=== PATIENT | male | born 2000 | race African-American/Black ===

== ENCOUNTER 2020-05-13 17:02 | Emergency (ER) | payer OTHER ==
[~2020-05-13] VITALS: Ht 175.3 cm; Wt 70.1 kg
[2020-05-13 17:03] VITALS: BP 123/70
[2020-05-13] MEDS ORDERED: AUGMENTIN 875 MG TAB PO ONE (18:00)
[2020-05-13] MEDS ORDERED: AUGM875T28 PO (18:03)
== END 2020-05-13 18:12 | disposition home or self-care (01) ==
LOC: M ED 17:02
DX: J02.0 Streptococcal pharyngitis (principal); Z79.51 Long term (current) use of inhaled steroids

== ENCOUNTER 2020-06-11 01:38 | Inpatient (IN) | payer OTHER ==
[~2020-06-11] VITALS: Ht 175.3 cm; Wt 69.8 kg
[~2020-06-11 01:38] MED LIST: AUGM875T28 PO
[2020-06-11] MEDS ORDERED: ACETAMINOPHEN 500 MG TAB As Ordered ONE (01:44)
[2020-06-11] MEDS ORDERED: cefTRIAXone SOD 1GM VIAL (J0696 PER 250MG) As Ordered ONE (03:06)
[2020-06-11] MEDS ORDERED: AZITHROMYCIN INJ 500MG VIAL (J0456 PER 500MG) As Ordered ONE (03:06)
[2020-06-11] MEDS ORDERED: IBUPROFEN 400 MG TAB As Ordered ONE (05:05)
[2020-06-11] MEDS ORDERED: VANCOMYCIN 1000MG/20ML VIAL As Ordered ONE (05:05)
[2020-06-11] MEDS ORDERED: VANCOMYCIN 1000MG/20ML VIAL ONE (15:58)
[2020-06-11 20:35] VITALS: BP 108/61
[2020-06-11] MEDS ORDERED: RAMELTEON 8 MG TAB (ROZEREM) PO PRN (21:00)
[2020-06-11] MEDS ORDERED: IBUPROFEN 400 MG TAB PO PRN (21:00)
[2020-06-11] MEDS ORDERED: ACETAMINOPHEN 500 MG TAB PO PRN (21:00)
[2020-06-11 21:12] VITALS: BP 123/87
[2020-06-11] MEDS ORDERED: ONDANSETRON 4 MG TAB PO PRN (21:15)
[2020-06-11] MEDS ORDERED: BISACODYL 5 MG TAB PO PRN (21:15)
[2020-06-11 22:25] VITALS: BP 121/87
[2020-06-11] MEDS: BENZONATATE 100 MG CAP PO PRN (23:22)
[2020-06-12] MEDS: VANCOMYCIN HCL 1,000 MG, VIAL MATE ADAPTER 1 EACH in D5W 250 ML IV SCH ×3 (01:29→18:09)
[2020-06-12 02:00] VITALS: BP 117/72
[2020-06-12] MEDS ORDERED: IBUP1TAB7 PO (02:42)
[2020-06-12] MEDS: LevoFLOXacin IV 750 MG in IV 1 EA IV SCH (03:23)
[2020-06-12] MEDS: NS 1,000 ML IV SCH ×4 (03:23→16:35)
[2020-06-12 06:00] VITALS: BP 128/83
[2020-06-12 06:40] LABS: BASO # 0.1 10^3/uL (0.0-0.2); BASO % 0.5 % (0.0-1.0); EOS # 2.7 10^3/uL (0.0-0.5); EOS % 19.4 % (0.0-3.0); HEMATOCRIT 42.7 % (42.0-52.0); HEMOGLOBIN 14.3 g/dl (13.5-17.5); LYMPH # 2.4 10^3/uL (1.5-5.0); LYMPH % 17.8 % (24.0-44.0); MEAN CORPUSCULAR HGB CONC 33.5 g/dl (32.0-36.5); MEAN CORPUSCULAR VOLUME 89.7 fl (80.0-96.0); MONO # 0.9 10^3/uL (0.0-0.8); MONO % 6.4 % (0.0-5.0); NEUTROPHILS # 7.6 10^3/uL (1.5-8.5); NEUTROPHILS % 55.5 % (36.0-66.0); PLATELET COUNT, AUTOMATED 372 10^3/uL (150-450); RED BLOOD COUNT 4.76 10^6/uL (4.30-6.10); WHITE BLOOD COUNT 13.7 10^3/uL (4.0-10.0)
[2020-06-12 07:12] LABS: ALBUMIN 2.7 GM/DL (3.2-5.2); ALT/SGPT 51 U/L (12-78); BILIRUBIN,TOTAL 0.5 MG/DL (0.2-1.0); BLOOD UREA NITROGEN 7 MG/DL (7-18); C REACTIVE PROTEIN QUANTITATIV 5.15 MG/DL (0.00-0.30); CALCIUM LEVEL 8.9 MG/DL (8.5-10.1); CARBON DIOXIDE LEVEL 29 MEQ/L (21-32); CHLORIDE LEVEL 108 MEQ/L (98-107); CREATININE FOR GFR 0.86 MG/DL (0.70-1.30); GLUCOSE, FASTING 95 MG/DL (70-100); MAGNESIUM LEVEL 1.6 MG/DL (1.8-2.4); POTASSIUM SERUM 4.6 MEQ/L (3.5-5.1); SODIUM LEVEL 140 MEQ/L (136-145); TOTAL PROTEIN 6.7 GM/DL (6.4-8.2)
[2020-06-12 08:55] LABS: ERYTHROCYTE SEDIMENTATION RATE 34 mm/hr (0-15)
[2020-06-12 12:00] VITALS: BP 116/72
--- NOTE | 2020-06-12 13:37 | IPNPDOC ---
Date Seen The patient was seen on 06/12/20. Progress Note SUBJECTIVE: Doing well. Denies subjective fevers, chills, however febrile overnight Tmax 102. Comfortable in bed. Chest pain and cough have improved. OBJECTIVE PHYSICAL EXAMINATION: VITAL SIGNS: Please see below. GENERAL: NAD, comfortable HEENT: PERRLA CARDIOVASCULAR: RRR, normal S1, S2, no friction rub. RESPIRATORY: mild rales, slightly diminished breath sounds on R. ABDOMINAL: soft, non tender EXTREMITIES: no deformity NEUROLOGICAL: AAO x 3, no focal deficits PSYCHOLOGICAL: calm, cooperative LABORATORY DATA, IMAGING STUDIES, MICROBIOLOGY: Please see below. DVT prophylaxis ordered?: Y ASSESSMENT AND PLAN: This is a 20 yo M with no significant PMHx, admitted for R sided CAP, sepsis. PROBLEMS: 1. Sepsis 2/2 pna: IV levaquin, vanc. Switch to PO abx once afebrile. To complete 7 days therapy. F/u legionella, strep Ag. Negative RVP. Saturating well on RA. LA 0.7. PO hydration, DC IVF. 2. Cough: tessalon 3. R sided chest pain: pleuritic, worse on coughing, tessalon. Trops neg, EKG shows no changes. 4. Urticaria: developed after shower. no resp symptoms. response to benadryl. Benadryl 25 mg PO q8h prn. DISPOSITION: DC home when medicall stable VS, I&O, 24H, Fishbone Vital Signs/I&O Vital Signs Date Time Temp Pulse Resp B/P (MAP) Pulse Ox O2 Delivery O2 Flow Rate FiO2 06/12/20 06:00 98.5 87 22 128/83 (98) 95 Room Air I&O- Last 24 Hours up to 6 AM 06/12/20 06:00 Intake Total 2880 ml Output Total 575 ml Balance 2305 ml Laboratory Data 24H LABS Laboratory Tests 2 06/11/20 21:40: Troponin I < 0.02 06/12/20 06:06: Anion Gap 3L, Calcium Level 8.9, Magnesium Level 1.6L, Total Bilirubin 0.5, As partate Amino Transf (AST/SGOT) 43H, Alanine Aminotransferase (ALT/SGPT) 51, Alkaline Phosphatase 165H, C-Reactive Protein, Quantitative 5.15H, Total Protein 6.7, Albumin 2.7L, Albumin/Globulin Ratio 0.7 06/12/20 06:22: Immature Granulocyte % (Auto) 0.4, Neutrophils (%) (Auto) 55.5, Lymphocytes (%) (Auto) 17.8L, Monocytes (%) (Auto) 6.4H, Eosinophils (%) (Auto) 19.4H, Basophils (%) (Auto) 0.5, Neutrophils # (Auto) 7.6, Lymphocytes # (Auto) 2.4, Monocytes # (Auto) 0.9H, Eosinophils # (Auto) 2.7H, Basophils # (Auto) 0.1, Nucleated Red Blood Cells % (auto) 0.0, Erythrocyte Sedimentation Rate 34H CBC/BMP Laboratory Tests 06/12/20 06:06 06/12/20 06:22 GERI SMITH MD Jun 12, 2020 13:37
[2020-06-12 14:43] VITALS: O2SAT 95
[2020-06-12] MEDS ORDERED: diphenhydrAMINE 25MG CAP PO ONE (16:30)
--- NOTE | 2020-06-12 19:54 | PHACANCOPD ---
PHARMACY VANCOMYCIN DOSING Pt Demographics Demographics Patient Age:20 , Weight: , Gender: male Adjusted Body Weight Date: 06/12/20, Adjusted Body Weight: Kg Vancomycin Vancomycin indication: RESPIRATORY INFECTION Vancomycin Target Ranges: 15-20 mcg/ml Vancomycin Load Y/N: No Load Dose Date Time Vancomycin Load Dose: Date: Time: Vancomycin Dose Date: 06/12/20. Current Vancomycin Dose: [1250MG IV Q8H] Intermittent Dosing?: No Labs Labs Item Value Date Time White Blood Count 13.7 10^3/uL H 06/12/20 0622 Erythrocyte Sedimentation Rate 34 mm/hr H 06/12/20 06 Micro MRSA PCR PENDING Creatinine Clearance Date:06/12/20. Creatinine Clearance: [Est CrCl >100ml/min]. Pending Labs Vancomycin trough level pending 06/13/20 @1700 Assessment and Plan Maintaining Current Dose?: No Reason for dose change: Trough too low Pharmacist Note Pharmacist Note Date: 06/12/20. Pharmacist note: Vancomycin trough level today resulted at 7.4mcg/ml (drawn 1.5hrs late). Loading with 1500mg tonight, followed by an increase to 1250mg q8h maintenance regimen. MRSA nasal PCR is pending. A follow- up vancomycin trough level has been scheduled to be drawn 06/13/20 @1700 (prior to 4th dose of new regimen). Pharmacy will follow-up and continue to monitor. [facility] Jun 12, 2020 19:54
[2020-06-12] MEDS ORDERED: VANCOMYCIN HCL 500 MG in D5W MINI-BAG PLUS 100 ML IV ONE (20:00)
[2020-06-12] MEDS: BENZONATATE 100 MG CAP PO PRN (20:24)
[2020-06-12] MEDS ORDERED: ENOXAPARIN 40MG/0.4ML SYRINGE (J1650 PER 10MG) SC SCH (21:00)
[2020-06-12] MEDS ORDERED: diphenhydrAMINE 25MG CAP PO PRN (21:45)
[2020-06-12 22:00] VITALS: BP 104/57
[2020-06-12] MEDS ORDERED: IPRATROPIUM 0.5MG/ALBUTEROL 2.5MG INH SOL UD 3ML (DUONEB) NEB PRN (23:15)
[2020-06-13 01:19] VITALS: O2SAT 95
[2020-06-13 02:00] VITALS: BP 110/56
[2020-06-13] MEDS: VANCOMYCIN HCL 750 MG, VIAL MATE ADAPTER 1 EACH in D5W 250 ML IV SCH ×2 (02:12→09:45)
[2020-06-13] MEDS ORDERED: VANCOMYCIN HCL 500 MG in D5W MINI-BAG PLUS 100 ML IV SCH (03:00)
[2020-06-13] MEDS: LevoFLOXacin IV 750 MG in IV 1 EA IV SCH (05:02)
[2020-06-13 06:00] VITALS: BP 118/68
--- NOTE | 2020-06-13 07:08 | IPNPDOC ---
Date Seen The patient was seen on 06/13/20. Progress Note SUBJECTIVE: Doing well. Afebrile Comfortable in bed. Chest pain and cough have resolved. OBJECTIVE PHYSICAL EXAMINATION: VITAL SIGNS: Please see below. GENERAL: NAD, comfortable HEENT: PERRLA CARDIOVASCULAR: RRR, normal S1, S2, no friction rub. RESPIRATORY: CTAB ABDOMINAL: soft, non tender EXTREMITIES: no deformity NEUROLOGICAL: AAO x 3, no focal deficits PSYCHOLOGICAL: calm, cooperative LABORATORY DATA, IMAGING STUDIES, MICROBIOLOGY: Please see below. DVT prophylaxis ordered?: Y ASSESSMENT AND PLAN: This is a 20 yo M with no significant PMHx, admitted for R sided CAP, sepsis. PROBLEMS: 1. Sepsis 2/2 pna: DC IV abx. Afebrile. Cough resolved. To complete 7 days abx, will finish 4 days of PO levaquin at home. Strep screen neg. 2. Cough: tessalon 3. R sided chest pain: pleuritic, worse on coughing, tessalon. Trops neg, EKG shows no changes. 4. Urticaria: developed after shower. no resp symptoms. Improved. Response to benadryl. Benadryl 25 mg PO q8h prn on DC DISPOSITION: DC home with PO antibiotics. [facility] Vital Signs Date Time Temp Pulse Resp B/P (MAP) Pulse Ox O2 Delivery O2 Flow Rate FiO2 06/13/20 02:00 99.5 87 20 110/56 (74) 96 Room Air I&O- Last 24 Hours up to 6 AM 06/13/20 06:00 Intake Total 4515 ml Output Total 3350 ml Balance 1165 ml Laboratory Data 24H LABS Laboratory Tests 2 06/12/20 18:00: Vancomycin Level Trough 7.4L 06/13/20 06:14: CBC/BMP GERI SMITH MD Jun 13, 2020 07:08
[2020-06-13 07:24] LABS: ALBUMIN 2.7 GM/DL (3.2-5.2); ALT/SGPT 51 U/L (12-78); BILIRUBIN,TOTAL 0.5 MG/DL (0.2-1.0); BLOOD UREA NITROGEN 6 MG/DL (7-18); CARBON DIOXIDE LEVEL 30 MEQ/L (21-32); CHLORIDE LEVEL 103 MEQ/L (98-107); CREATININE FOR GFR 0.93 MG/DL (0.70-1.30); GLUCOSE, FASTING 99 MG/DL (70-100); POTASSIUM SERUM 4.1 MEQ/L (3.5-5.1); SODIUM LEVEL 138 MEQ/L (136-145); TOTAL PROTEIN 6.8 GM/DL (6.4-8.2)
[2020-06-13 10:00] VITALS: BP 118/67
[2020-06-13 12:12] VITALS: O2SAT 98
[2020-06-13 14:00] VITALS: BP 133/70
[2020-06-13] MEDS ORDERED: LEVA750T7 PO (15:37)
[2020-06-13] MEDS ORDERED: BENZ-18 PO (15:37)
[2020-06-13] MEDS ORDERED: DIPH25CA32 PO (15:37)
--- NOTE | 2020-06-13 15:51 | DS.PDOC ---
Discharge Summary General Date of Admission Jun 11, 2020 at 03:30 Date of Discharge 06/13/2020 Attending Physician: GERI SMITH MD Discharge Summary PROCEDURES PERFORMED DURING STAY: [None]. ADMITTING DIAGNOSES: 1. Community Acquired Pneumonia DISCHARGE DIAGNOSES: 1. CAP COMPLICATIONS/CHIEF COMPLAINT: Fever, Cough. HISTORY OF PRESENT ILLNESS: 20 yo M presenting for worsening cough, SOB and subjective fevers and chills. CXR showing R lobe consolidation. HOSPITAL COURSE: Started on IV vanc and levaquin. Completed 3 days of IV abx therapy, resulting in improvement in cough, pleuritic chest pain. Remained afebrile after 2 days of admission. On day 2, developed a pruritic urticarial rash after showering which responded to benadryl. IV vancomycin was discontinued. Would recommend allergy testing as outpatient. DISCHARGE MEDICATIONS: Please see below. ALLERGIES: Please see below. PHYSICAL EXAMINATION ON DISCHARGE: VITAL SIGNS: Please see below. GENERAL: NAD, comfortable HEENT: PERRLA NECK: supple, normal ROM CARDIOVASCULAR EXAMINATION: RRR, normal S1, S2 RESPIRATORY EXAMINATION: CTAB, no rales, no crackles, no wheezubg ABDOMINAL EXAMINATION: soft, non tender EXTREMITIES: no deformity, normal ROM SKIN: fine, pruritic rash on arms, back. Morbiliform NEUROLOGICAL EXAMINATION: no focal neuro deficit PSYCHIATRIC EXAMINATION: calm, cooperative LABORATORY DATA: Please see below. Imaging: R sided consolidation on CXR. ACTIVITY: [As tolerated]. DIET: as tolerated DISCHARGE PLAN: return home with PCP follow up DISCHARGE INSTRUCTIONS: 1. Complete 4 additional days of oral antibiotic therapy, for a total of 7 days. Levaquin 750 mg PO daily x 4 days. 2. Monitor for recurrence of fever, chills, cough, worsening shortness of breath ITEMS TO FOLLOWUP ON ON OUTPATIENT: 1. Skin allergy testing DISCHARGE CONDITION: [Stable]. TIME SPENT ON DISCHARGE: Less than [30] minutes. Vital Signs/I&Os Vital Signs Date Time Temp Pulse Resp B/P (MAP) Pulse Ox O2 Delivery O2 Flow Rate FiO2 06/13/20 14:00 98.6 79 17 133/70 (91) 96 Room Air I&O- Last 24 Hours up to 6 AM 06/13/20 06:00 Intake Total 4815 ml Output Total 3350 ml Balance 1465 ml Laboratory Data Labs 24H Laboratory Tests 2 06/12/20 18:00: Vancomycin Level Trough 7.4L 06/13/20 06:14: Anion Gap 5L, Calcium Level 9.0, Total Bilirubin 0.5, Aspartate Amino Transf (AST/SGOT) 37, Alanine Aminotransferase (ALT/SGPT) 51, Alkaline Phosphatase 159H, Total Protein 6.8, Albumin 2.7L, Albumin/Globulin Ratio 0.7 CBC/BMP Laboratory Tests 06/13/20 06:14 Microbiology Microbiology 06/11/20 Respiratory Virus Panel (PCR) ([facility]) - Final, Complete Discharge Medications Scheduled Levofloxacin (Levaquin) 750 Mg Tablet, 1 TAB PO DAILY Scheduled PRN Benzonatate (Benzonatate) 100 Mg Capsule, 100 MG PO TIDP PRN for COUGH Diphenhydramine HCl (Diphenhydramine HCl) 25 Mg Capsule, 25 MG PO Q8HP PRN for ITCHING Ibuprofen (Ibuprofen) 800 Mg Tablet, 800 MG PO TID PRN for HEADACHE OR PAIN, (Reported) Allergies Coded Allergies: No Known Allergies (Unverified , 05/13/20) GERI SMITH MD Jun 13, 2020 15:51
[2020-06-15 18:51] LABS: ALBUMIN 2.7 GM/DL (3.2-5.2); ALT/SGPT 53 U/L (12-78); BILIRUBIN,TOTAL 0.5 MG/DL (0.2-1.0); BLOOD UREA NITROGEN 10 MG/DL (7-18); CARBON DIOXIDE LEVEL 28 MEQ/L (21-32); CHLORIDE LEVEL 108 MEQ/L (98-107); CREATININE FOR GFR 0.82 MG/DL (0.70-1.30); GLUCOSE, FASTING 82 MG/DL (70-100); MAGNESIUM LEVEL 1.9 MG/DL (1.8-2.4); PHOSPHORUS LEVEL 3.7 MG/DL (2.5-4.9); POTASSIUM SERUM 4.5 MEQ/L (3.5-5.1); SODIUM LEVEL 140 MEQ/L (136-145); TOTAL PROTEIN 6.8 GM/DL (6.4-8.2); TROPONIN I < 0.02 NG/ML (< 0.10)
[2020-06-15 20:43] LABS: BLOOD UREA NITROGEN 9 MG/DL (7-18); C REACTIVE PROTEIN QUANTITATIV 8.15 MG/DL (0.00-0.30); CALCIUM LEVEL 9.2 MG/DL (8.5-10.1); CARBON DIOXIDE LEVEL 29 MEQ/L (21-32); CHLORIDE LEVEL 102 MEQ/L (98-107); CREATININE FOR GFR 0.98 MG/DL (0.70-1.30); GLUCOSE, FASTING 92 MG/DL (70-100); LDH LACTATE DEHYDROGENASE 264 U/L (87-241); POTASSIUM SERUM 3.9 MEQ/L (3.5-5.1); SODIUM LEVEL 135 MEQ/L (136-145)
[2020-06-15 20:43] LABS: BLOOD UREA NITROGEN 7 MG/DL (7-18); CALCIUM LEVEL 8.6 MG/DL (8.5-10.1); CARBON DIOXIDE LEVEL 29 MEQ/L (21-32); CHLORIDE LEVEL 105 MEQ/L (98-107); CREATININE FOR GFR 0.87 MG/DL (0.70-1.30); GLUCOSE, FASTING 106 MG/DL (70-100); MAGNESIUM LEVEL 2.2 MG/DL (1.8-2.4); POTASSIUM SERUM 3.9 MEQ/L (3.5-5.1); SODIUM LEVEL 137 MEQ/L (136-145)
--- NOTE | 2020-07-16 07:58 | REP ---
PORTABLE CHEST X-RAY: SINGLE-VIEW HISTORY: Right-sided pneumonia. COMPARISON: 06/11/2020. FINDINGS: There is a large dense infiltrate occupying most of the right upper lobe similar to the prior exam from two days earlier. The infiltrate abuts the minor fissure. There is no evidence of pleural effusion. No new infiltrate is seen. IMPRESSION: Large essentially lobar infiltrate in the right upper lobe persists. MTDD
--- NOTE | 2020-07-16 09:27 | ECGEPIP ---
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
--- NOTE | 2020-07-17 10:54 | ECGEPIP ---
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
[2020-07-22 08:11] LABS: HEMATOCRIT 42.4 % (42.0-52.0); HEMOGLOBIN 14.3 g/dl (13.5-17.5); MEAN CORPUSCULAR HEMOGLOBIN 30.4 pg (27.0-33.0); MEAN CORPUSCULAR HGB CONC 33.7 g/dl (32.0-36.5); PLATELET COUNT, AUTOMATED 367 10^3/uL (150-450); RED BLOOD COUNT 4.71 10^6/uL (4.30-6.10); WHITE BLOOD COUNT 18.8 10^3/uL (4.0-10.0)
[2020-07-22 08:11] LABS: BASO # 0.1 10^3/uL (0.0-0.2); BASO % 0.5 % (0.0-1.0); EOS # 1.7 10^3/uL (0.0-0.5); EOS % 8.5 % (0.0-3.0); HEMATOCRIT 47.4 % (42.0-52.0); HEMOGLOBIN 15.9 g/dl (13.5-17.5); LYMPH # 3.1 10^3/uL (1.5-5.0); LYMPH % 16.1 % (24.0-44.0); MEAN CORPUSCULAR HEMOGLOBIN 30.1 pg (27.0-33.0); MEAN CORPUSCULAR HGB CONC 33.5 g/dl (32.0-36.5); MEAN CORPUSCULAR VOLUME 89.8 fl (80.0-96.0); MONO # 1.3 10^3/uL (0.0-0.8); MONO % 6.8 % (0.0-5.0); NEUTROPHILS # 13.2 10^3/uL (1.5-8.5); NEUTROPHILS % 67.6 % (36.0-66.0); PLATELET COUNT, AUTOMATED 376 10^3/uL (150-450); RED BLOOD COUNT 5.28 10^6/uL (4.30-6.10); WHITE BLOOD COUNT 19.5 10^3/uL (4.0-10.0)
== END 2020-06-13 16:27 | disposition home or self-care (01) | DRG 871 ==
LOC: M ED 01:38 → M MSPAV 03:30
PROVIDERS: ADMIT Internal Medicine; ATTEND Family Medicine
DX: A41.9 Sepsis, unspecified organism (principal); J18.9 Pneumonia, unspecified organism; Z79.899 Other long term (current) drug therapy; L50.9 Urticaria, unspecified

== ENCOUNTER 2020-06-24 07:29 | Emergency (ER) | payer OTHER ==
[~2020-06-24] VITALS: Ht 175.3 cm; Wt 67.3 kg
[~2020-06-24 07:29] MED LIST changes: +BENZ-18 PO; +DIPH25CA32 PO; +IBUP1TAB7 PO; +LEVA750T7 PO
[2020-06-24] MEDS: ALBUTEROL 90 MCG/ACT 8GM HFA INHALER INH SCH ×3 (08:39→09:40)
[2020-06-24 08:51] LABS: BASO # 0.1 10^3/uL (0.0-0.2); BASO % 0.7 % (0.0-1.0); EOS % 12.1 % (0.0-3.0); HEMATOCRIT 45.5 % (42.0-52.0); HEMOGLOBIN 14.8 g/dl (13.5-17.5); LYMPH # 3.8 10^3/uL (1.5-5.0); LYMPH % 46.9 % (24.0-44.0); MEAN CORPUSCULAR HEMOGLOBIN 29.5 pg (27.0-33.0); MEAN CORPUSCULAR HGB CONC 32.5 g/dl (32.0-36.5); MEAN CORPUSCULAR VOLUME 90.8 fl (80.0-96.0); MONO # 0.5 10^3/uL (0.0-0.8); MONO % 5.6 % (0.0-5.0); NEUTROPHILS # 2.8 10^3/uL (1.5-8.5); NEUTROPHILS % 34.5 % (36.0-66.0); PLATELET COUNT, AUTOMATED 402 10^3/uL (150-450); RED BLOOD COUNT 5.01 10^6/uL (4.30-6.10); WHITE BLOOD COUNT 8.2 10^3/uL (4.0-10.0)
[2020-06-24 09:08] LABS: BLOOD UREA NITROGEN 13 MG/DL (7-18); CALCIUM LEVEL 9.1 MG/DL (8.5-10.1); CARBON DIOXIDE LEVEL 29 MEQ/L (21-32); CHLORIDE LEVEL 106 MEQ/L (98-107); CREATININE FOR GFR 1.03 MG/DL (0.70-1.30); GLUCOSE, FASTING 88 MG/DL (70-100); POTASSIUM SERUM 3.6 MEQ/L (3.5-5.1); SODIUM LEVEL 141 MEQ/L (136-145)
[2020-06-24 09:59] VITALS: O2SAT 99
[2020-06-24 10:35] VITALS: BP 121/68
[2020-06-24] MEDS ORDERED: PROAAER10 INH (10:36)
[2020-06-24] MEDS ORDERED: PRED20TA PO (10:36)
--- NOTE | 2020-07-19 14:32 | REP ---
CHEST X-RAY CLINICAL: Shortness of breath. Follow-up pneumonia. TECHNIQUE: PA and lateral. COMPARISON: 06/13/2020. FINDINGS: The right upper lobe pneumonia is again identified, but considerably improved and decreased from prior examination. No new process is appreciated. The mediastinum and cardiac silhouette are normal. Skeletal structures are intact. IMPRESSION: Right upper lobe infiltrate decreased from prior examination. MTDD
== END 2020-06-24 10:48 | disposition home or self-care (01) ==
LOC: M ED 07:29
DX: J45.909 Unspecified asthma, uncomplicated (principal); Z87.01 Personal history of pneumonia (recurrent)

== ENCOUNTER 2020-07-04 08:28 | Emergency (ER) | payer OTHER ==
[~2020-07-04] VITALS: Ht 175.3 cm; Wt 98.1 kg
[~2020-07-04 08:28] MED LIST changes: +PRED20TA PO; +PROAAER10 INH
--- NOTE | 2020-07-04 09:13 | REPVR ---
PROCEDURE INFORMATION: Exam: XR Chest, 2 Views Exam date and time: 07/04/20 (8:53am) Age: 20 years old Clinical indication: Chest pain and SOB TECHNIQUE: Imaging protocol: XR of the chest Views: 2 views COMPARISON: Chest films of 06/24/20 FINDINGS: Comparison is made with chest films done on 06/24/20. Partial clearing of hazy RUL opacity in the interim. No new infiltrates. No pleural effusions. Normal heart size. IMPRESSION: Partial clearing of hazy RUL infiltrate. No new infiltrates. No pleural effusions. Electronically signed by: Adelita Ramos On 07/04/2020 09:13:21 AM
[2020-07-04] MEDS ORDERED: KETO10TAB PO (09:26)
[2020-07-04] MEDS ORDERED: KETOROLAC 60MG 2ML VIAL IM ONE (09:30)
[2020-07-04 09:57] VITALS: BP 111/71
--- NOTE | 2020-07-05 13:40 | ED PDOC ---
Post-Departure Follow-Up cxr formal report faxed to [email or web address] for [facility] David Alexandra MD Jul 05, 2020 13:40
== END 2020-07-04 10:00 | disposition home or self-care (01) ==
LOC: M ED 08:28
DX: R07.89 Other chest pain (principal); R91.8 Other nonspecific abnormal finding of lung field
CPT/HCPCS: 71046; 96372; 99283; J1885

== ENCOUNTER 2020-07-25 08:23 | Inpatient (IN) | payer OTHER ==
[~2020-07-25] VITALS: Ht 175.3 cm; Wt 71.2 kg
[~2020-07-25 08:23] MED LIST changes: +KETO10TAB PO
[2020-07-25] MEDS ORDERED: methylPREDNISolone 125MG 2ML VIAL IV ONE (09:15)
[2020-07-25] MEDS ORDERED: ISOVUE-370 76% 100ML VIAL As Ordered ONE (09:28)
[2020-07-25 09:35] LABS: BASO % 0.7 % (0.0-1.0); EOS # 0.2 10^3/uL (0.0-0.5); EOS % 2.9 % (0.0-3.0); HEMATOCRIT 43.1 % (42.0-52.0); HEMOGLOBIN 14.3 g/dl (13.5-17.5); LYMPH # 2.5 10^3/uL (1.5-5.0); LYMPH % 45.8 % (24.0-44.0); MEAN CORPUSCULAR HEMOGLOBIN 29.5 pg (27.0-33.0); MEAN CORPUSCULAR HGB CONC 33.2 g/dl (32.0-36.5); MONO # 0.3 10^3/uL (0.0-0.8); MONO % 4.5 % (0.0-5.0); NEUTROPHILS # 2.5 10^3/uL (1.5-8.5); NEUTROPHILS % 45.9 % (36.0-66.0); PLATELET COUNT, AUTOMATED 334 10^3/uL (150-450); RED BLOOD COUNT 4.84 10^6/uL (4.30-6.10); WHITE BLOOD COUNT 5.5 10^3/uL (4.0-10.0)
--- NOTE | 2020-07-25 10:03 | REPVR ---
PROCEDURE INFORMATION: Exam: CT Angiography Chest With Contrast Exam date and time: 07/25/2020 9:04 AM Age: 20 years old Clinical indication: Shortness of breath; Chest pain; Additional info: Cp/sob TECHNIQUE: Imaging protocol: Computed tomographic angiography of the chest with intravenous contrast. 3D rendering (Not supervised by radiologist): MIP and/or 3D reconstructed images were created by the technologist. Radiation optimization: All CT scans at this facility use at least one of these dose optimization techniques: automated exposure control; mA and/or kV adjustment per patient size (includes targeted exams where dose is matched to clinical indication); or iterative reconstruction. Contrast material: ISOVUE 370; Contrast volume: 75 ml; Contrast route: INTRAVENOUS (IV); COMPARISON: CR Chest, 2 view PA, Lat 07/04/2020 8:53 AM FINDINGS: Pulmonary arteries: No pulmonary embolus is identified. Aorta: The thoracic aorta is nonaneurysmal. Lungs: There is a small area of mild ground-glass and tree-in-bud opacity in the right upper lobe. This is in the area of opacity on the prior radiographs. The lungs are otherwise clear. Pleural space: Unremarkable. No pneumothorax. No pleural effusion. Heart: Unremarkable. No cardiomegaly. No pericardial effusion. Lymph nodes: Unremarkable. No enlarged lymph nodes. Bones/joints: Unremarkable. No acute fracture. Soft tissues: Unremarkable. IMPRESSION: 1. No pulmonary embolus identified. 2. Small area of mild ground-glass and tree-in-bud opacity in the right upper lobe, could be infectious or inflammatory, corresponding to an area of opacity on radiographs of 07/04/20. Recommend follow-up to resolution. Electronically signed by: Zi Echols On 07/25/2020 10:02:55 AM
[2020-07-25 10:04] LABS: ALBUMIN 3.9 GM/DL (3.2-5.2); ALT/SGPT 32 U/L (12-78); BILIRUBIN,DIRECT 0.1 MG/DL (0.0-0.2); BILIRUBIN,TOTAL 0.5 MG/DL (0.2-1.0); CK-MB VALUE MASS 1.1 NG/ML (<3.6); CPK CREATINE PHOSPHOKINASE 354 U/L (39-308); MB/CK RELATIVE INDEX 0.31 (< OR =4); TOTAL PROTEIN 7.5 GM/DL (6.4-8.2); TROPONIN I < 0.02 NG/ML (< 0.10)
--- NOTE | 2020-07-25 13:38 | HPEPDOC ---
[facility] Medical History & Physical Date of Admission Jul 25, 2020 Date of Service: Jul 25, 2020 Attending Physician: MATTIE REYES MD History and Physical CHIEF COMPLAINT: sob and wheezing HISTORY OF PRESENT ILLNESS: Pt is a 20 year old male who has no significant PMHx to report, who presented to [facility] ER for cc of sob and wheezing. He was recently admitted for RUL PNA which he was treated inpatient with IV vanco/zosyn. He states that he has had this sob for the past month and really has not resolved. He states that he has always had a wheeze especially at night. He denies any nightime awakenings. He sometimes uses his brother's AMY albuterol inhaler. He is trying actively to find a pulmonogist to get a spirometry test to r/o Asthma. He denies traveling anywhere in the past month. Denies any sick contacts. Denies CP, SOB at the moment of the interview, wheezing, fever, nausea, vomiting or diarrhea. PAST MEDICAL HISTORY: None PAST SURGICAL HISTORY: None SOCIAL HISTORY: Denies Alcohol use or illicit drug use or tobacco use In the FAMILY HISTORY: Father: HTN Mother: Asthma Brother: Asthma ALLERGIES: NKDA REVIEW OF SYSTEMS: Constitutional: No Weight Change, No Fever, No Chills, No Night Sweats, No Fatigue, No Malaise ENT/Mouth: No Hearing Changes, No Ear Pain, No Nasal Congestion, No Sinus Pain, No Hoarseness, No sore throat, No Rhinorrhea, No Swallowing Difficulty Eyes: No Eye Pain, No Swelling, No Redness, No Foreign Body, No Discharge, No Vision Changes Cardiovascular: No Chest Pain, No SOB, No PND, No Dyspnea on Exertion, No Orthopnea, No Claudication, No Edema, No Palpitations Respiratory: No accessory muscle use , No Cough, No Wheezing, No Smoke Exposure, No Dyspnea Gastrointestinal: No Nausea, No Vomiting, No Diarrhea, No Constipation, No abdominal pain but does report bloating and decreased appetite Genitourinary: No Dysmenorrhea, No DUB, No Dyspareunia, No Dysuria Musculoskeletal: No Arthralgias, No Myalgias, No Joint Swelling, No Joint Stiffness, No Back Pain, No Neck Pain, No Injury History Skin: No Skin Lesions, No Pruritis Neuro: No Weakness, No Numbness, No Paresthesias, No Loss of Consciousness, No Syncope, No Dizziness, No Headache, No Coordination Changes, No Recent Falls Psych: No Anxiety/Panic, No Depression, No Insomnia, No Personality Changes, No Delusions Heme/Lymph: No Bruising, No Bleeding, No Transfusions History, No Lymphadenopathy Endocrine: No Polyuria, No Polydipsia, No Temperature Intolerance HOME MEDICATIONS: Please see below. PHYSICAL EXAMINATION: VITAL SIGNS: see below GENERAL: young male, alert and oriented, in no apparent distress, pleasant and conversant in full sentences. satting well on RA HEENT: PERRL, EOMI, Oral mucous membranes are moist without lesions. NECK: No JVD, Adenopathy, thyromegaly CHEST/LUNGS: Lungs are clear bilaterally without rhonchi, rales, or wheezes HEART: Regular rate and rhythm. 2/6 DON heard best in RUSB. Distal pulses are 2+. No carotid bruits appreciated. ABDOMEN: Soft, nontender, and nondistended. Bowel sounds are positive. No organomegaly is appreciated. No masses are appreciated. There are no peritoneal signs. EXTREMITIES: No peripheral edema. There is no focal long bone tenderness or deformity. SKIN: The patients skin is warm and dry, without rashes or lesions. PSYCHIATRIC: AAO x 3, normal mood/affect NEUROLOGIC: The patient has 5/5 strength to the upper and lower extremities bilaterally. Sensation is intact throughout. Deep tendon reflexes are 2+ in all four extremities. There are no deficits to the cranial nerves. LABORATORY DATA: See below. IMAGING: CTA: 1.) Small area of mild ground-glass and tree-in-bud opacity in the right upper lobe, could be infectious or inflammatory, corresponding to an area of opacity on radiographs of 07/04/20. No Pulm embolism MICROBIOLOGY: Please see below Assessment: This is a 20 year old male, who's relatively health without any reported past medical hx, admitted under obs due to sob and subjective wheezing. He states that he has an extensive family hx of asthma and says that he sometimes get sob after exercise. He is being worked up to r/o TB and is on droplet/airbone precautions #sob and wheezing likely 2/2 to Asthma - No sob or wheezing on exam - O2 PRN - Albuterol Nebs and prednisone 40mg PO qday - Will hold on abx- no leukocytosis - Pending IgG levels - LDH - B-D glucan pending - Aspger ab pending - Glactomannan pending - Pt will need to follow outpt with Pulmonolgist for a spirometry test # R/o Tuberculosis - CTA shows - small area of mild ground glass and tree in bud opacity in the RUL - Quantiferon Gold assay ordered- pending - Airborne/droplet precautions - CXR ordered for tomorrow (07/26) am DVT ppx: TEDs/SCDs Diet: Regular IVF: None Code status: Full Droplet/airborne precautions Disposition: Admitted to obs. pending labs for asthma workup and r/o TB. Vital Signs Vital Signs Date Time Temp Pulse Resp B/P (MAP) Pulse Ox O2 Delivery O2 Flow Rate FiO2 07/25/20 11:16 97.9 59 16 125/67 (86) 100 Room Air Laboratory Data Labs 24H Laboratory Tests 2 07/25/20 09:13: Immature Granulocyte % (Auto) 0.2, Neutrophils (%) (Auto) 45.9, Lymphocytes (%) (Auto) 45.8H, Monocytes (%) (Auto) 4.5, Eosinophils (%) (Auto) 2.9, Basophils (%) (Auto) 0.7, Neutrophils # (Auto) 2.5, Lymphocytes # (Auto) 2.5, Monocytes # (Auto) 0.3, Eosinophils # (Auto) 0.2, Basophils # (Auto) 0.0, Nucleated Red Blood Cells % (auto) 0.0, Lactic Acid Level 1.3, Total Bilirubin 0.5, Direct Bilirubin 0.1, Aspartate Amino Transf (AST/SGOT) 25, Alanine Aminotransferase (ALT/SGPT) 32, Alkaline Phosphatase 80, Total Creatine Kinase 354H, Creatine Kinase MB 1.1, Creatine Kinase MB Relative Index 0.31, Troponin I < 0.02, Total Protein 7.5, Albumin 3.9, Albumin/Globulin Ratio 1.1 07/25/20 09:15: POC Glucose (Misc Panel) 93, POC Sodium (Misc Panel) 141, POC Potassium (Misc Panel) 3.7, POC Chloride (Misc Panel) 99, POC Total CO2 (Misc Panel) 28.0H, POC Blood Urea Nitrogen (Misc Panel 7L, POC Ionized Calcium (Misc Panel) 5.0, POC Creatinine (Misc Panel) 1.0, POC Hematocrit (Misc Panel) 48.0 07/25/20 12:47: CBC/BMP Laboratory Tests 07/25/20 09:13 Microbiology Microbiology 07/25/20 Blood Culture, Received Pending 07/25/20 Blood Culture, Received Pending Home Medications No Active Prescriptions or Reported Meds Allergies Coded Allergies: No Known Allergies (Unverified , 06/24/20) A-FIB/CHADSVASC A-FIB History Current/History of A-Fib/PAF?: Yes Current PO Anticoag Therapy: No Cl Carty DO Jul 25, 2020 13:38
[2020-07-25 15:09] LABS: LDH LACTATE DEHYDROGENASE 188 U/L (87-241)
[2020-07-25 15:53] VITALS: BP 116/75
[2020-07-25] MEDS: ALBUTEROL SULFATE 2.5 MG/0.5 ML INH NEB SOLN NEB SCH ×3 (16:00→23:13)
[2020-07-25 22:00] VITALS: BP 119/72
[2020-07-26] MEDS: ALBUTEROL SULFATE 2.5 MG/0.5 ML INH NEB SOLN NEB SCH ×6 (03:40→23:17)
[2020-07-26 06:36] VITALS: BP 123/70
[2020-07-26] MEDS: ADVAIR HFA 230/21MCG INHALER INH SCH ×3 (08:00→19:33)
[2020-07-26 08:07] LABS: HEMATOCRIT 42.1 % (42.0-52.0); HEMOGLOBIN 13.6 g/dl (13.5-17.5); MEAN CORPUSCULAR HEMOGLOBIN 28.9 pg (27.0-33.0); MEAN CORPUSCULAR HGB CONC 32.3 g/dl (32.0-36.5); MEAN CORPUSCULAR VOLUME 89.4 fl (80.0-96.0); PLATELET COUNT, AUTOMATED 330 10^3/uL (150-450); RED BLOOD COUNT 4.71 10^6/uL (4.30-6.10); WHITE BLOOD COUNT 12.9 10^3/uL (4.0-10.0)
[2020-07-26 08:26] LABS: BLOOD UREA NITROGEN 10 MG/DL (7-18); CALCIUM LEVEL 9.4 MG/DL (8.5-10.1); CARBON DIOXIDE LEVEL 27 MEQ/L (21-32); CHLORIDE LEVEL 105 MEQ/L (98-107); CREATININE FOR GFR 0.89 MG/DL (0.70-1.30); GLUCOSE, FASTING 114 MG/DL (70-100); POTASSIUM SERUM 3.9 MEQ/L (3.5-5.1); SODIUM LEVEL 140 MEQ/L (136-145)
[2020-07-26] MEDS: predniSONE 20 MG TAB PO SCH (10:11)
--- NOTE | 2020-07-26 10:54 | IPNPDOC ---
Text Note Date of Service The patient was seen on 07/26/20. NOTE Subjective: Pt states dyspnea improved. No CP/palpitations. Notes he has been frequent episodes of CORTEZ and wheezing with ambulation since hospitalization in May for PNA. Family h/o Asthma; never diagnosed. Objective: Vitals: (see below) General: No acute distress, laying comfortably in bed. HEENT: Moist mucous membranes. Neck: No JVD or lymphadenopathy Cardiac: RRR, No murmurs Pulm: Diminished at the bases b/l. No wheezing, rhonchi Abd: NT/ND + BS Ext: No edema or cyanosis Labs (see below) Images: CTA Chest 07/26/20 IMPRESSION: 1. No pulmonary embolus identified. 2. Small area of mild ground-glass and tree-in-bud opacity in the right upper lobe, could be infectious or inflammatory, corresponding to an area of opacity on radiographs of 07/04/20. Recommend follow-up to resolution. A/P 1. CORTEZ/Wheezing ? 2/2 Asthma Exacerbation - No sob or wheezing on exam - O2 PRN - Albuterol Nebs and prednisone 40mg PO qday - Will hold on abx- Current leukocytosis likely 2/2 steroids. - Pending IgG levels - LDH - B-D glucan pending - Aspger ab pending - Glactomannan pending - CTA Chest noted. - Sent for Quantiferon Gold assay; pending - Check Peak Flow - Discussed with Dr. Dudley who will see pt. DVT ppx: TEDs/SCDs VS,Fishbone, I+O VS, Fishbone, I+O Laboratory Tests 07/26/20 07:14 Vital Signs Date Time Temp Pulse Resp B/P (MAP) Pulse Ox O2 Delivery O2 Flow Rate FiO2 07/26/20 06:36 97.8 74 16 123/70 (87) 98 Room Air I&O- Last 24 Hours up to 6 AM 07/26/20 06:00 Intake Total 460 ml Balance 460 ml BRISEIDA BOSWELL MD Jul 26, 2020 10:54
[2020-07-26 15:00] VITALS: BP 128/67
[2020-07-26 22:00] VITALS: BP 131/70
[2020-07-27] MEDS: ALBUTEROL SULFATE 2.5 MG/0.5 ML INH NEB SOLN NEB SCH ×6 (03:01→23:12)
[2020-07-27 06:00] VITALS: BP 105/85
[2020-07-27] MEDS: predniSONE 20 MG TAB PO SCH (09:13)
--- NOTE | 2020-07-27 10:49 | IPNPDOC ---
Text Note Date of Service The patient was seen on 07/27/20. NOTE Subjective: Pt feels well. No cough/sob. No CP/Palpitations. Objective: Vitals: (see below) General: No acute distress, laying comfortably in bed. HEENT: Moist mucous membranes. Neck: No JVD or lymphadenopathy Cardiac: RRR, No murmurs Pulm: Diminished at the bases b/l. No wheezing, rhonchi Abd: NT/ND + BS Ext: No edema or cyanosis Labs (see below) Images: CTA Chest 07/26/20 IMPRESSION: 1. No pulmonary embolus identified. 2. Small area of mild ground-glass and tree-in-bud opacity in the right upper lobe, could be infectious or inflammatory, corresponding to an area of opacity on radiographs of 07/04/20. Recommend follow-up to resolution. A/P 1. CORTEZ/Wheezing ? 2/2 Asthma Exacerbation - No sob or wheezing on exam - O2 PRN - Albuterol Nebs and prednisone 40mg PO qday - Will hold on abx- Current leukocytosis likely 2/2 steroids. - Pending IgG levels - LDH - B-D glucan pending - Aspger ab pending - Glactomannan pending - CTA Chest noted. - Sent for Quantiferon Gold assay; pending - Check Peak Flow - Discussed with Dr. Dudley who recc advair as this is likely asthma related. Does not believe this is TB. Called the lab; Quantiferon Gold assay will take 7-10 days to come back. Dr. Dudley recc 2 negative AFB smears prior to d/c for completeness, although highly unlikely. DVT ppx: TEDs/SCDs VS,Fishbone, I+O VS, Fishbone, I+O Vital Signs Date Time Temp Pulse Resp B/P (MAP) Pulse Ox O2 Delivery O2 Flow Rate FiO2 07/27/20 06:00 97.8 68 16 105/85 (92) 95 Room Air I&O- Last 24 Hours up to 6 AM 07/27/20 06:00 Intake Total 2400 ml Output Total 0 ml Balance 2400 ml BRISEIDA BOSWELL MD Jul 27, 2020 10:48
[2020-07-27 14:00] VITALS: BP 108/83
[2020-07-27] MEDS: ADVAIR HFA 230/21MCG INHALER INH SCH (19:44)
[2020-07-27 22:00] VITALS: BP 110/61
[2020-07-28] MEDS: ALBUTEROL SULFATE 2.5 MG/0.5 ML INH NEB SOLN NEB SCH (01:42)
[2020-07-28 06:00] VITALS: BP 125/61
[2020-07-28] MEDS ORDERED: ALBUTEROL SULFATE 2.5 MG/0.5 ML INH NEB SOLN NEB PRN (07:45)
[2020-07-28] MEDS: ADVAIR HFA 230/21MCG INHALER INH SCH ×2 (08:00→19:25)
[2020-07-28] MEDS: guaiFENesin ER 600 MG TAB PO SCH ×2 (09:54→21:09)
[2020-07-28] MEDS: predniSONE 20 MG TAB PO SCH (09:54)
[2020-07-28] MEDS ORDERED: SODIUM CHLORIDE HYPERTONIC 3% 15ML NEB SOL INH ONE (11:00)
[2020-07-28 14:00] VITALS: BP 138/75
[2020-07-28] MEDS ORDERED: PRED10PA2 PO (18:10)
[2020-07-28] MEDS ORDERED: ADVA230A INH (18:10)
--- NOTE | 2020-07-28 18:20 | IPNPDOC ---
Text Note Date of Service The patient was seen on 07/28/20. NOTE Subjective: Pt feels well. No cough/sob. No CP/Palpitations. No acute changes overnight. Objective: Vitals: (see below) General: No acute distress, laying comfortably in bed. HEENT: Moist mucous membranes. Neck: No JVD or lymphadenopathy Cardiac: RRR, No murmurs Pulm: Diminished at the bases b/l. No wheezing, rhonchi Abd: NT/ND + BS Ext: No edema or cyanosis Labs (see below) Images: CTA Chest 07/26/20 IMPRESSION: 1. No pulmonary embolus identified. 2. Small area of mild ground-glass and tree-in-bud opacity in the right upper lobe, could be infectious or inflammatory, corresponding to an area of opacity on radiographs of 07/04/20. Recommend follow-up to resolution. A/P 1. CORTEZ/Wheezing ? 2/2 Asthma Exacerbation - No sob or wheezing on exam - O2 PRN - Albuterol Nebs and prednisone 40mg PO qday - Will hold on abx- Current leukocytosis likely 2/2 steroids. - Pending IgG levels - LDH - B-D glucan pending - Aspger ab pending - Glactomannan pending - CTA Chest noted. - Sent for Quantiferon Gold assay; pending - Check Peak Flow - Discussed with Dr. Dudley who recc advair as this is likely asthma related. Does not believe this is TB. Called the lab; Quantiferon Gold assay will take 7-10 days to come back. Dr. Dudley recc 2 negative AFB smears prior to d/c for completeness, although highly unlikely. 2 AFB smears/cx sent and pending. DVT ppx: TEDs/SCDs VS,Fishbone, I+O VS, Fishbone, I+O Vital Signs Date Time Temp Pulse Resp B/P (MAP) Pulse Ox O2 Delivery O2 Flow Rate FiO2 07/28/20 14:00 98.8 93 20 138/75 (96) 98 Room Air I&O- Last 24 Hours up to 6 AM 07/28/20 06:00 Intake Total 1620 ml Output Total 0 ml Balance 1620 ml BRISEIDA BOSWELL MD Jul 28, 2020 18:20
[2020-07-28 22:00] VITALS: BP 95/68
[2020-07-29 06:00] VITALS: BP 129/75
[2020-07-29] MEDS: ADVAIR HFA 230/21MCG INHALER INH SCH ×2 (07:47→20:10)
[2020-07-29] MEDS: predniSONE 20 MG TAB PO SCH (09:11)
[2020-07-29] MEDS ORDERED: SODIUM CHLORIDE HYPERTONIC 3% 15ML NEB SOL INH ONE (12:15)
[2020-07-29 14:00] VITALS: BP 119/76
--- NOTE | 2020-07-29 14:48 | IPNPDOC ---
Text Note Date of Service The patient was seen on 07/29/20. NOTE Subjective: Pt feels well. No cough/sob. Objective: Vitals: (see below) General: No acute distress, laying comfortably in bed. HEENT: Moist mucous membranes. Neck: No JVD or lymphadenopathy Cardiac: RRR, No murmurs Pulm: Diminished at the bases b/l. No wheezing, rhonchi Abd: NT/ND + BS Ext: No edema or cyanosis Labs (see below) Images: CTA Chest 07/26/20 IMPRESSION: 1. No pulmonary embolus identified. 2. Small area of mild ground-glass and tree-in-bud opacity in the right upper lobe, could be infectious or inflammatory, corresponding to an area of opacity on radiographs of 07/04/20. Recommend follow-up to resolution. A/P 1. CORTEZ/Wheezing ? 2/2 Asthma Exacerbation - No sob or wheezing on exam - O2 PRN - Albuterol Nebs and prednisone 40mg PO qday - Will hold on abx- Current leukocytosis likely 2/2 steroids. - Pending IgG levels - LDH - B-D glucan pending - Aspger ab pending - Glactomannan pending - CTA Chest noted. - Sent for Quantiferon Gold assay; pending - Check Peak Flow - Discussed with Dr. Dudley who recc advair as this is likely asthma related. Does not believe this is TB. Called the lab; Quantiferon Gold assay will take 7-10 days to come back. Dr. Dudley recc 2 negative AFB smears prior to d/c for completeness, although highly unlikely. 2 AFB smears/cx sent --> 1 negative; 2nd pending. Pt can be d/c home once 2 negative AFB smears. DVT ppx: TEDs/SCDs VS,Fishbone, I+O VS, Fishbone, I+O Vital Signs Date Time Temp Pulse Resp B/P (MAP) Pulse Ox O2 Delivery O2 Flow Rate FiO2 07/29/20 14:00 98.0 72 16 119/76 (90) 98 Room Air I&O- Last 24 Hours up to 6 AM 07/29/20 06:00 Intake Total 760 ml Balance 760 ml BRSIEIDA BOSWELL MD Jul 29, 2020 14:48
--- NOTE | 2020-07-29 14:49 | CR ---
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 Initially admitted to the hospital in May 2020. He was found to have pneumonia. Subsequent to his hospitalization, his respiratory status has been impaired, and he has found it difficult to complete even some activities of daily living. His shortness of breath abruptly worsened, and he reported back to the emergency department and was admitted to the hospital. His past pulmonary history includes respiratory symptoms during exercise in his youth. He reports that when he played sports he would hear whistling and wheezing, which resolved at rest, and became less as he grew older. He is originally from [place], and he noticed in December of this year when he was transferred to [facility] that his respiratory status once again was impaired. In May he developed fevers, chills, rigors, and shortness of breath. He was admitted to the hospital with pneumonia, found to be in his right upper lobe, treated with antibiotics and steroids. His symptoms resolved, and he was discharged. His other past pulmonary history of relatively unremarkable. He has no primary nor secondary tobacco exposure. He has never had significant chest trauma. He has never been overwhelmed by smoke or fumes. There are no occupational risks. He has never suffered a deep venous thrombosis (DVT) nor pulmonary embolism (PE). PAST MEDICAL HISTORY: None. MEDICATIONS PRIOR TO ADMISSION: Albuterol as needed. SOCIAL HISTORY: Nonsmoker. He does not take alcohol. He has a supportive family in the [place] area. REVIEW OF SYSTEMS: CONSTITUTIONAL: He has no significant change in appetite or weight. HEENT: There is no impairment of the vision, smell, or hearing. CARDIOVASCULAR: No history of typical anginal-type chest pains, orthopnea, paroxysmal nocturnal dyspnea, or claudication. PULMONARY: See above. GASTROINTESTINAL: There is no history of nausea, vomiting, constipation, or diarrhea. GENITOURINARY: No frequency, dysuria, kidney stone history. ENDOCRINE: No history of diabetes or thyroid disease. DERMATOLOGIC: He notes some dry patches on his skin recently but has no history of psoriasis or pruritic skin lesions. HEMATOLOGIC: No easy bruising or bleeding. NEUROLOGIC: No history of stroke or seizure. MUSCULOSKELETAL: No muscles disorders or joint disease. FAMILY HISTORY: He does have family members with reactive airways disease. PHYSICAL EXAMINATION: He is awake, alert, and oriented. His affect and mood are appointment. Nutrition and hygiene are good. VITAL SIGNS: Temperature 97, pulse rate 74, respirations 16, blood pressure 123/70. His oxygen saturation is 98% on room air. HEENT: Oral and nasal mucosa are pink. His posterior pharynx is not erythematous. There is no stridor over the trachea. No adenopathy in the neck. Jugular veins are flat. Carotid upstroke brisk. No bruit over the carotid arteries. HEART: Sounds are regular without appreciable murmur. His breath sounds are diminished. Expiratory phase is prolonged. There is mid end-expiratory wheezing. CHEST: Symmetric. Moves symmetrically. ABDOMEN: Soft with intact bowel sounds. There is no mass or organomegaly. EXTREMITIES: Show edema. Nail are not clubbed nor cyanosed. DIAGNOSTIC STUDIES: CBC performed during his admission in May for pneumonia did show an elevated white cell count at 19.5. It also showed an elevated eosinophil count at 8.5%. Hemoglobin and hematocrit were normal at 15 and 47, and platelet count was normal at 376. His electrolytes are normal. Chest x-ray in May showed a consolidated pneumonia in the right upper lobe anterior segment. Subsequent chest x-rays have shown resolution of the infiltrate with some residual ground-glass opacities noted on CT. IMPRESSION: 1. Asthma. 2. Abnormal x-ray. 2a. Residual infiltrate from resolving right upper lobe anterior segment pneumonia. RECOMMENDATIONS: 1. I would initiate an inhaled corticosteroid long-acting beta agonist for controller therapy. 2. At discharge, I will set up a complete pulmonary function study and methyl choline challenge test to confirm his airway reactivity, and I will follow him on an outpatient basis. It will be necessary for him to obtain referral from his primary care provider at [place]. Thank you for allowing me to consult in the care of this patient. If there are questions, please do not hesitate to contact me. SARAVANAN
[2020-07-29 18:11] LABS: HEMATOCRIT 48.8 % (42.0-52.0); HEMOGLOBIN 15.9 g/dl (13.5-17.5); MEAN CORPUSCULAR HEMOGLOBIN 29.4 pg (27.0-33.0); MEAN CORPUSCULAR HGB CONC 32.6 g/dl (32.0-36.5); MEAN CORPUSCULAR VOLUME 90.4 fl (80.0-96.0); PLATELET COUNT, AUTOMATED 382 10^3/uL (150-450); WHITE BLOOD COUNT 10.1 10^3/uL (4.0-10.0)
[2020-07-29 22:00] VITALS: BP 121/75
[2020-07-30] MEDS ORDERED: ALBUTEROL 90 MCG/ACT 8GM HFA INHALER INH PRN (08:45)
[2020-07-30] MEDS: predniSONE 20 MG TAB PO SCH (08:47)
[2020-07-30] MEDS: ADVAIR HFA 230/21MCG INHALER INH SCH (08:49)
[2020-07-30] MEDS ORDERED: VENTAER INH (11:57)
[2020-07-30 14:00] VITALS: BP 114/66
--- NOTE | 2020-07-30 21:06 | DS.PDOC ---
Discharge Summary General Date of Admission Jul 25, 2020 at 12:22 Date of Discharge 07/30/20 Discharge Summary PROCEDURES PERFORMED DURING STAY: [None]. DISCHARGE DIAGNOSES: Asthma. Abnormal x-ray. Residual infiltrate from resolving right upper lobe anterior segment pneumonia. COMPLICATIONS/CHIEF COMPLAINT: Infiltrate Of Rt Lung Present On Chest X-Ray. 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 He was recently admitted for RUL PNA which he was treated inpatient with IV vanco/zosyn. His SOB after treatment for the pneumonia has not resolved. He states that he has always had a wheeze especially at night. He denies any nighttime awakenings. He was using his brother's albuterol which helped some. he was admitted for possible Acute asthma exacerbation. He was seen by Pulmonary Dr Dudley. He responded well to steroids, albuterol prn and advair. At present his symptoms have resolved and he is being discharged in stable and improved condition. DISCHARGE MEDICATIONS: Please see below. ALLERGIES: Please see below. PHYSICAL EXAMINATION ON DISCHARGE: VITAL SIGNS: Please see below. General: No acute distress, laying comfortably in bed. HEENT: Moist mucous membranes. Neck: No JVD or lymphadenopathy Cardiac: RRR, No murmurs/ rub or gallop Pulm: Clear to auscultation. No wheezing, No rhonchi Abd: NT/ND + BS Ext: No edema or cyanosis LABORATORY DATA: Please see below. IMAGING: CTA Chest 07/26/20 IMPRESSION: 1. No pulmonary embolus identified. 2. Small area of mild ground-glass and tree-in-bud opacity in the right upper lobe, could be infectious or inflammatory, corresponding to an area of opacity on radiographs of 07/04/20. Recommend follow-up to resolution. ACTIVITY: [As tolerated]. DIET: Regular DISPOSITION: 01 Home, Self-Care. DISCHARGE INSTRUCTIONS: Needs referral to Pulmonary, Dr Dudley Needs PFT, Methacholine challenge test Follow up with PMD in 1 week ITEMS TO FOLLOWUP ON ON OUTPATIENT: - Pending IgG levels - LDH - B-D glucan pending - Aspger ab pending - Glactomannan pending - Quantiferon Gold assay; pending DISCHARGE CONDITION: [Stable]. TIME SPENT ON DISCHARGE: 35 minutes. Vital Signs/I&Os Vital Signs Date Time Temp Pulse Resp B/P (MAP) Pulse Ox O2 Delivery O2 Flow Rate FiO2 07/30/20 14:00 97.9 94 16 114/66 (82) 96 Room Air I&O- Last 24 Hours up to 6 AM 07/30/20 07:00 Intake Total 810 ml Output Total 0 ml Balance 810 ml Microbiology Microbiology 07/29/20 Acid Fast Stain - Final, Resulted 07/29/20 Mycobacterial Culture, Resulted Pending 07/28/20 Acid Fast Stain - Final, Resulted 07/28/20 Mycobacterial Culture, Resulted Pending 07/25/20 Blood Culture - Final, Complete NO GROWTH AFTER 5 DAYS 07/25/20 Blood Culture - Final, Complete NO GROWTH AFTER 5 DAYS 07/25/20 Gram Stain - Final, Resulted 07/25/20 Sputum Culture, Resulted Pending 07/25/20 Respiratory Virus Panel (PCR) (WINNIE) - Final, Complete 07/25/20 Blood Culture - Final, Complete NO GROWTH AFTER 5 DAYS 07/25/20 Blood Culture - Final, Complete NO GROWTH AFTER 5 DAYS Discharge Medications Scheduled Fluticasone Propion/Salmeterol (Advair Hfa 230-21 Mcg Inhaler) 12 Gm Hfa.aer.ad, 2 PUFF INH RBID 1 month supply Prednisone (Prednisone) 10 Mg Tab.ds.pk, 1 TAB PO DAILY Take 3 tab x 3days, then 2 tab x 3 days, then 1 tab x 3 days, then stop. Scheduled PRN Albuterol Sulfate (Ventolin Hfa) 18 Gm Hfa.aer.ad, 2 PUFF INH Q4HP PRN for SHORTNESS OF BREATH Allergies Coded Allergies: No Known Allergies (Unverified , 06/24/20) CRISTA FLOR MD Jul 30, 2020 21:06
[2020-08-06 12:15] LABS: ASPERGILLUS FLAVUS ABY Negative (Neg:<1:1); ASPERGILLUS FUMIGATUS ABY Negative (Neg:<1:1); ASPERGILLUS GALACTOMANNAN AG 0.04 Index (0.00-0.49); ASPERGILLUS NIGER ABY Negative (Neg:<1:1); FUNGITELL, SERUM <31 pg/mL (<80); IgG SERUM (part of Subclasses) 1426 mg/dL (603-1613); IgG Subclass 1 866 mg/dL (248-810); IgG Subclass 2 346 mg/dL (130-555); IgG Subclass 3 > 227 mg/dL (15-102); IgG Subclass 4 60 mg/dL (2-96)
== END 2020-07-30 16:50 | disposition home or self-care (01) | DRG 202 ==
LOC: M ED 08:23 → M ED INP 12:22 → ENRESERV 14:10 → M MS5PR 15:50
PROVIDERS: ADMIT Internal Medicine; ATTEND Internal Medicine Nephrology
DX: J45.901 Unspecified asthma with (acute) exacerbation (principal); J18.9 Pneumonia, unspecified organism

== ENCOUNTER → 2020-08-22 | Outpatient (CLI) | payer OTHER ==
[~2020-08-22] MED LIST changes: +ADVA230A INH; +METHACHOLINE KIT (J7674) INH ONE; +PRED10PA2 PO; +VENTAER INH
--- NOTE | 2020-08-22 08:27 | PFTRPT ---
Height: 69.00 Inches Weight: 160.00 Lbs BSA: 1.88 Diagnosis: J45.4 DATE: 08/22/2020 ORDERED BY: Ronaldo Dudley D.O. QUALITY: Study of excellent technical quality. PROCEDURE: Under protocol, methacholine was administered. At a dose of 0.25 mg or 1.375 CDUs, a 39% decline of the FEV1 was noted. PC of 0.06 is significant. Flow rates did return to baseline post-bronchodilator administration. IMPRESSION: Positive methacholine challenge study. MTDD
== END ==
LOC: M CARPUL 07:50
PROVIDERS: ATTEND Internal Medicine Pulmonary Disease
DX: J45.40 Moderate persistent asthma, uncomplicated (principal)

== ENCOUNTER 2020-09-07 17:07 | Emergency (ER) | payer OTHER ==
[~2020-09-07] VITALS: Ht 175.3 cm; Wt 70.0 kg
[~2020-09-07 17:07] MED LIST changes: -METHACHOLINE KIT (J7674) INH ONE
--- NOTE | 2020-09-07 18:53 | REPVR ---
PROCEDURE INFORMATION: Exam: XR Right Hand Exam date and time: 09/07/2020 5:32 PM Age: 20 years old Clinical indication: Pain; Hand; Right; Additional info: Pain over 4th and 5th mcp after fall TECHNIQUE: Imaging protocol: XR Right hand. Views: 3 or more views. COMPARISON: No relevant prior studies available. FINDINGS: Bones/joints: Normal. Soft tissues: Normal. IMPRESSION: No acute findings. Electronically signed by: Darryl Santana On 09/07/2020 18:52:52 PM
[2020-09-07 19:07] VITALS: BP 133/71
== END 2020-09-07 19:10 | disposition home or self-care (01) ==
LOC: M ED 17:07
DX: M79.641 Pain in right hand (principal); J45.909 Unspecified asthma, uncomplicated; Z79.51 Long term (current) use of inhaled steroids; Z82.49 Family history of ischemic heart disease and other diseases of the circulatory system

== ENCOUNTER → 2020-09-12 | Outpatient (CLI) | payer OTHER ==
--- NOTE | 2020-09-12 11:40 | REP ---
INDICATION: MODERATE PERSISTENT ASTHMA, UNCOMPLICATED COMPARISON: None. TECHNIQUE: PA and lateral. FINDINGS: The mediastinum and cardiac silhouette are normal. The lung montoya are clear and without acute consolidation, effusion, or pneumothorax. The skeletal structures are intact and normal. IMPRESSION: No acute cardiopulmonary process. No focal consolidation or effusion. <Electronically signed by Kevin Aranda > 09/12/20 [id number]
== END ==
LOC: M RAD 10:53
PROVIDERS: ATTEND Internal Medicine Pulmonary Disease
DX: J45.40 Moderate persistent asthma, uncomplicated (principal)

== ENCOUNTER 2020-10-30 19:00 | Emergency (ER) | payer OTHER ==
[~2020-10-30] VITALS: Ht 175.3 cm; Wt 75.0 kg
[2020-10-30] MEDS ORDERED: ACETAMINOPHEN TAB 650MG DOSE (2X325MG) PO ONE (19:30)
[2020-10-30] MEDS ORDERED: NS 1,000 ML IV ONE (19:30)
--- NOTE | 2020-10-30 20:19 | REPVR ---
PROCEDURE INFORMATION: Exam: XR Chest, 1 View Exam date and time: 10/30/2020 7:19 PM Age: 20 years old Clinical indication: Other: Dyspnea; Additional info: Dyspnea/cough TECHNIQUE: Imaging protocol: XR of the chest Views: 1 view. COMPARISON: CR Chest, 2 view PA, Lat 09/12/2020 11:19 AM FINDINGS: Lungs: Unremarkable. No consolidation. Pleural space: Unremarkable. No pleural effusion. No pneumothorax. Heart/Mediastinum: Unremarkable. No cardiomegaly. Bones/joints: Unremarkable. IMPRESSION: No acute findings. Electronically signed by: Darryl Santana On 10/30/2020 20:19:41 PM
[2020-10-30] MEDS ORDERED: dexameTHASONE 20MG/5ML VIAL (J1100 PER 1MG) IV ONE (20:30)
[2020-10-30 20:32] LABS: BASO % 0.4 % (0.0-1.0); EOS # 0.1 10^3/uL (0.0-0.5); HEMATOCRIT 46.6 % (42.0-52.0); HEMOGLOBIN 14.9 g/dl (13.5-17.5); LYMPH # 1.6 10^3/uL (1.5-5.0); LYMPH % 22.5 % (24.0-44.0); MEAN CORPUSCULAR HEMOGLOBIN 29.2 pg (27.0-33.0); MEAN CORPUSCULAR VOLUME 91.2 fl (80.0-96.0); MONO # 0.7 10^3/uL (0.0-0.8); MONO % 9.8 % (0.0-5.0); NEUTROPHILS # 4.6 10^3/uL (1.5-8.5); PLATELET COUNT, AUTOMATED 272 10^3/uL (150-450); RED BLOOD COUNT 5.11 10^6/uL (4.30-6.10); WHITE BLOOD COUNT 6.9 10^3/uL (4.0-10.0)
[2020-10-30 21:00] LABS: INR 1.1; PROTHROMBIN TIME 14.4 SECONDS (12.5-14.3)
[2020-10-30 21:02] LABS: D-DIMER QUANT 363.3 ng/ml (<500)
[2020-10-30 21:04] LABS: ALBUMIN 4.1 GM/DL (3.2-5.2); ALT/SGPT 29 U/L (12-78); BILIRUBIN,DIRECT 0.1 MG/DL (0.0-0.2); BILIRUBIN,TOTAL 0.3 MG/DL (0.2-1.0); BLOOD UREA NITROGEN 9 MG/DL (7-18); CALCIUM LEVEL 8.8 MG/DL (8.5-10.1); CARBON DIOXIDE LEVEL 32 MEQ/L (21-32); CHLORIDE LEVEL 103 MEQ/L (98-107); CK-MB VALUE MASS < 1.0 NG/ML (<3.6); CPK CREATINE PHOSPHOKINASE 197 U/L (39-308); CREATININE FOR GFR 1.16 MG/DL (0.70-1.30); FERRITIN 53 NG/ML (26-388); GLUCOSE, FASTING 86 MG/DL (70-100); LDH LACTATE DEHYDROGENASE 221 U/L (87-241); MB/CK RELATIVE INDEX 0.51 (< OR =4); POTASSIUM SERUM 3.4 MEQ/L (3.5-5.1); SODIUM LEVEL 138 MEQ/L (136-145); THYROID STIMULATING HORMONE 0.169 uIU/ML (0.463-3.98); TOTAL PROTEIN 7.7 GM/DL (6.4-8.2); TROPONIN I < 0.02 NG/ML (< 0.10)
[2020-10-30 22:15] LABS: FREE T4 0.79 NG/DL (0.78-1.33)
[2020-10-30] MEDS ORDERED: IBUPROFEN 800 MG TAB PO ONE (22:15)
[2020-10-30 23:00] VITALS: BP 126/68
--- NOTE | 2020-10-31 05:34 | ECGEPIP ---
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
== END 2020-10-30 23:17 | disposition home or self-care (01) ==
LOC: M ED 19:00
DX: U07.1 COVID-19 (principal); R00.0 Tachycardia, unspecified
CPT/HCPCS: 71045; 80048; 80076; 82550; 82553; 82728; 83605; 83615; 84145; 84439; 84443; 84484; 85025; 85379; 85610; 86140; 87040; 87486; 87581; 87633; 87798; 93005; 93041; 94760; 96361; 96374; 99285; J1100

== ENCOUNTER 2021-03-05 22:07 | Emergency (ER) | payer OTHER ==
[~2021-03-05] VITALS: Ht 175.3 cm; Wt 69.2 kg
[2021-03-05] MEDS ORDERED: PROAAER10 (22:11)
[2021-03-05 22:55] LABS: HEMATOCRIT 47.7 % (42.0-52.0); HEMOGLOBIN 15.7 g/dl (13.5-17.5); MEAN CORPUSCULAR HEMOGLOBIN 29.7 pg (27.0-33.0); MEAN CORPUSCULAR HGB CONC 32.9 g/dl (32.0-36.5); MEAN CORPUSCULAR VOLUME 90.2 fl (80.0-96.0); PLATELET COUNT, AUTOMATED 377 10^3/uL (150-450); RED BLOOD COUNT 5.29 10^6/uL (4.30-6.10); WHITE BLOOD COUNT 9.5 10^3/uL (4.0-10.0)
--- NOTE | 2021-03-05 23:48 | REPVR ---
PROCEDURE INFORMATION: Exam: XR Chest Exam date and time: 03/05/2021 11:00 PM Age: 20 years old Clinical indication: Other: Hemoptysis TECHNIQUE: Imaging protocol: XR of the chest. Views: 2 views. COMPARISON: CR PORTABLE CHEST X-RAY 10/30/2020 7:53 PM FINDINGS: Lungs: Unremarkable. No consolidation. Pleural spaces: Unremarkable. No pleural effusion. No pneumothorax. Heart/Mediastinum: Unremarkable. No cardiomegaly. Bones/joints: Unremarkable. IMPRESSION: Negative chest. Electronically signed by: Michael Rocha On 03/05/2021 23:47:48 PM
[2021-03-05 23:58] VITALS: BP 130/75
[2021-03-06] MEDS ORDERED: DOXY100C37 PO (00:14)
[2021-03-06] MEDS ORDERED: DOXYCYCLINE HYCLATE 100MG TABLET PO ONE (00:15)
== END 2021-03-06 00:35 | disposition home or self-care (01) ==
LOC: M ED 22:07
DX: J01.90 Acute sinusitis, unspecified (principal); R04.1 Hemorrhage from throat; J45.909 Unspecified asthma, uncomplicated; Z86.16 Personal history of COVID-19

== ENCOUNTER 2021-03-27 10:51 | Emergency (ER) | payer OTHER ==
[~2021-03-27] VITALS: Ht 175.3 cm; Wt 81.7 kg
[~2021-03-27 10:51] MED LIST changes: +DOXY100C37 PO; +PROAAER10
--- NOTE | 2021-03-27 11:14 | REP ---
INDICATION: injury COMPARISON: None. TECHNIQUE: AP, lateral, bilateral oblique views right hand. FINDINGS: The osseous structures and joint spaces are intact and normal. There is no evidence for acute fracture or dislocation. Surrounding soft tissues are unremarkable. No subcutaneous emphysema or radiodense foreign body. IMPRESSION: . No acute fracture or dislocation. <Electronically signed by Kevin Aranda > 03/27/21 [id number]
[2021-03-27 12:31] VITALS: BP 121/78
== END 2021-03-27 12:32 | disposition home or self-care (01) ==
LOC: M ED 10:51
DX: M79.641 Pain in right hand (principal)

== ENCOUNTER 2021-05-16 01:50 | Emergency (ER) | payer OTHER ==
[~2021-05-16] VITALS: Ht 175.3 cm; Wt 63.6 kg
[~2021-05-16 01:50] MED LIST changes: -DOXY100C37 PO; +DOXY1CAP62 PO
[2021-05-16] MEDS ORDERED: MONT10TA10 PO (01:57)
[2021-05-16] MEDS ORDERED: IBUP-1730 PO (01:57)
[2021-05-16] MEDS ORDERED: KETOROLAC 30 MG/ML 1ML VIAL IV ONE (03:10)
[2021-05-16] MEDS ORDERED: METOCLOPRAMIDE INJ 10MG/2ML VIAL (J2765 PER 1) IV ONE (03:10)
[2021-05-16] MEDS ORDERED: diphenhydrAMINE 50MG/ML VIAL (J1200) IV ONE (03:10)
[2021-05-16] MEDS ORDERED: ACETAMINOPHEN 500 MG TAB PO ONE (03:10)
[2021-05-16] MEDS ORDERED: NS 1,000 ML IV ONE (03:10)
[2021-05-16] MEDS ORDERED: dexameTHASONE 4 MG/ML 1ML VIAL (J1100 PER 1MG) IV ONE (04:45)
[2021-05-16] MEDS ORDERED: PROMETHAZINE INJ 25 MG/ML VIAL (J2550) IV ONE (04:45)
[2021-05-16] MEDS ORDERED: MAG SULF 1GM/100ML (MAG RUN) 1 GM in IV 1 EA IV ONE (04:45)
[2021-05-16 05:30] VITALS: BP 94/53
== END 2021-05-16 05:53 | disposition home or self-care (01) ==
LOC: M ED 01:50
DX: G43.009 Migraine without aura, not intractable, without status migrainosus (principal); Z79.51 Long term (current) use of inhaled steroids; Z79.899 Other long term (current) drug therapy
CPT/HCPCS: 96361; 96374; 96375; 99284; J1200; J1885; J2765

== ENCOUNTER 2022-01-09 13:47 | Emergency (ER) | payer OTHER, SELFPAY ==
[~2022-01-09] VITALS: Ht 175.3 cm; Wt 63.4 kg
[2022-01-09 13:47] VITALS: BP 128/82
[~2022-01-09 13:47] MED LIST changes: +DOXY-443 PO; -DOXY1CAP62 PO; +IBUP-1730 PO; +MONT10TA97 PO
[2022-01-09] MEDS ORDERED: NEOSPORIN OINT 0.9 GM PKT TOP ONE (15:05)
[2022-01-09] MEDS ORDERED: BACI500O8 TOP (15:54)
== END 2022-01-09 16:38 | disposition home or self-care (01) ==
LOC: M ED 13:47
DX: S61.411A Laceration without foreign body of right hand, initial encounter (principal); Y92.009 Unspecified place in unspecified non-institutional (private) residence as the place of occurrence of the external cause; Y04.0XXA Assault by unarmed brawl or fight, initial encounter; Y99.9 Unspecified external cause status; Y93.89 Activity, other specified